=== PATIENT | female | born 1990 | race African-American/Black ===

== ENCOUNTER 2018-02-14 23:54 | Emergency (ER) | payer OTHER ==
[~2018-02-14] VITALS: Ht 172.7 cm; Wt 102.1 kg
[2018-02-15] MEDS ORDERED: NKM (00:03)
--- NOTE | 2018-02-15 00:10 | Emergency Room Report ---
History of Present Illness General Chief Complaint: Lower Extremity Injury Source: Patient Present Illness HPI Is a 27-year-old female with no past medical history. She presents with chief complaint of right ankle pain. Onset for last 2-3 days. No trauma. 2 months ago she actually fell and brace foot. It hurt then. They got better. Now complaining of pain over the lateral ankle area. With swelling. Worse to the point where she can't bear weight because of the pain. No fever chills but no calf tenderness. Denies any other complaint. Pain is 9 out of 10. Better with rest. Allergies: Coded Allergies: No Known Allergies (Unverified , 02/15/18) Patient History Past Medical History: see triage record, old chart reviewed Past Surgical History: none Pertinent Family History: none Last Menstrual Period: 3 weeks ago Now: No Immunizations: other Reviewed Nursing Documentation: PMH: Agreed; PSxH: Agreed Nursing Documentation-PMH Past Medical History: No Stated History Review of Systems Eye: Denies: eye pain, blurred vision ENT: Denies: ear pain, nose congestion, throat swelling Respiratory: Denies: cough, shortness of breath Cardiovascular: Denies: chest pain, palpitations Gastrointestinal: Denies: abdominal pain, diarrhea, nausea, vomiting Musculoskeletal: Reports: joint pain; Denies: back pain Skin: Denies: rash Neurological: Denies: headache, numbness Endocrine: Denies: increased thirst, increased urine Hematologic/Lymphatic: Denies: easy bruising All Other Systems: negative except mentioned in HPI Physical Exam Vital Signs Date Time Temp Pulse Resp B/P (MAP) Pulse Ox O2 Delivery O2 Flow Rate FiO2 02/14/18 23:55 98.5 99 16 140/94 95 Room Air 98.4 vitals normal Sp02 EP Interpretation: reviewed, normal General Appearance: well appearing, no apparent distress, alert Head: normocephalic, atraumatic Eyes: bilateral eye PERRL, bilateral eye EOMI ENT: hearing grossly normal, normal pharynx Neck: full range of motion, supple, no meningismus Respiratory: chest non-tender, lungs clear, normal breath sounds Cardiovascular #1: regular rate, rhythm, no murmur Gastrointestinal: normal bowel sounds, non tender, no mass, no organomegaly, no bruit, non-distended Musculoskeletal: back normal, normal range of motion, tender - Tenderness over the right lateral malleolus. No pain at the base of the fifth metatarsal bone. Mild edema. No redness or warmth. Neurologic: alert, oriented x3 Psychiatric: mood/affect normal Skin: warm/dry Medical Decision Making Diagnostic Impression: Primary Impression: Right ankle sprain Qualified Codes: S93.401A - Sprain of unspecified ligament of right ankle, initial encounter ER Course Patient with ankle pain. Most likely a sprain. No evidence of septic joint or gout. No calf tenderness or edema to indicate DVT. No trauma. We'll discharge home. Other X-Ray Diagnostic Results Other X-Ray Diagnostic Results : X-Ray ordered: rright ankle x-rays # of Views/Limited Vs Complete: 3 View Indication: Pain EP Interpretation: Yes Interpretation: no dislocation, no soft tissue swelling, no fractures Impression: No acute disease Electronically Signed by: Vasu Billings MD Last Vital Signs Date Time Temp Pulse Resp B/P (MAP) Pulse Ox O2 Delivery O2 Flow Rate FiO2 02/14/18 23:55 98.5 99 16 140/94 95 Room Air 98.4 Status: improved Disposition: HOME, SELF-CARE Condition: Stable Scripts Ibuprofen* (MOTRIN*) 600 Mg Tablet 600 MG ORAL THREE TIMES A DAY, #30 TAB 0 Refills Prov: VASU BILLINGS M.D. 02/15/18 Patient Instructions: Ankle Sprain Additional Instructions: Follow-up with your doctor in 7 days. If continue with pain, may need MRI. Return if symptom worsen. VASU BILLINGS M.D. Feb 15, 2018 00:10
[2018-02-15] MEDS ORDERED: Norco 5mg/325mg tab ORAL ONE (00:15)
[2018-02-15] MEDS ORDERED: IBUPROFEN600 MG ORAL (00:22)
[2018-02-15] MEDS ORDERED: Norco 5mg/325mg tab ONE (00:24)
--- NOTE | 2018-02-15 01:13 | Diagnostic Imaging Report ---
EXAM: XR Right Ankle Complete, 3 Views CLINICAL HISTORY: PAIN TECHNIQUE: Frontal, lateral and oblique views of the right ankle. COMPARISON: No relevant prior studies available. FINDINGS: Bones/joints: Unremarkable. No acute fracture. No dislocation. Soft tissues: Unremarkable. IMPRESSION: No definite plain film evidence for acute fracture or dislocation. If there is continued clinical concern for fracture, consider CT or MRI for further evaluation.
[2018-02-15 01:25] VITALS: BP 155/84
== END 2018-02-15 01:25 | disposition home or self-care (01) ==
LOC: EMR 23:59
DX: S93.401A Sprain of unspecified ligament of right ankle, initial encounter (principal); X58.XXXA Exposure to other specified factors, initial encounter; Y92.9 Unspecified place or not applicable
CPT/HCPCS: 29515; 99283

== ENCOUNTER 2019-02-14 22:23 | Emergency (ER) | payer MEDICAID, OTHER ==
[~2019-02-14] VITALS: Ht 172.7 cm; Wt 113.4 kg
[~2019-02-14 22:23] MED LIST: IBUPROFEN600 MG ORAL; NKM
[2019-02-14 22:45] VITALS: BP 156/111
--- NOTE | 2019-02-14 22:45 | NUR ---
ED Nurse Note: Walk-in patient reports pain in the left ankle. Patient reports twisting ankle over a year ago and managing pain from the injury. Patient reports recent increase and limited mobility due to pain within the last week.
--- NOTE | 2019-02-14 23:10 | NUR ---
ED Nurse Note: Radiology at bedside.
[2019-02-14] MEDS ORDERED: HYDROcodone/Acetamin 5/325 tab ORAL ONE (23:30)
[2019-02-14] MEDS ORDERED: IBUPROFEN600 MG ORAL (23:42)
[2019-02-14] MEDS ORDERED: HYDROCODON-ACE1 EA15 ORAL (23:42)
[2019-02-14] MEDS ORDERED: NORVASC10 MG ORAL (23:42)
--- NOTE | 2019-02-14 23:42 | Emergency Room Report ---
History of Present Illness General Chief Complaint: Pain Source: Patient, Medical Record Present Illness HPI Is a 28-year-old female with no significant past medical history. She presents with chief complaint left ankle pain. Onset for the last few days. Worse with walking. She has some swelling to the medial aspect of it. No trauma. Pain is 9 out of 10. Worse with walking and weightbearing. Similar symptom in the past with her right ankle. Allergies: Coded Allergies: No Known Allergies (Unverified , 02/15/18) Patient History Past Medical History: see triage record, old chart reviewed Past Surgical History: none Pertinent Family History: none Social History: Denies: smoking Last Menstrual Period: 01/2019 Now: No Immunizations: other Reviewed Nursing Documentation: PMH: Agreed; PSxH: Agreed Nursing Documentation-PMH Past Medical History: No Stated History Review of Systems Eye: Denies: eye pain, blurred vision ENT: Denies: ear pain, nose congestion, throat swelling Respiratory: Denies: cough, shortness of breath Cardiovascular: Denies: chest pain, palpitations Gastrointestinal: Denies: abdominal pain, diarrhea, nausea, vomiting Musculoskeletal: Reports: joint pain; Denies: back pain Skin: Denies: rash Neurological: Denies: headache, numbness Endocrine: Denies: increased thirst, increased urine Hematologic/Lymphatic: Denies: easy bruising All Other Systems: negative except mentioned in HPI Physical Exam Vital Signs Date Time Temp Pulse Resp B/P (MAP) Pulse Ox O2 Delivery O2 Flow Rate FiO2 02/14/19 22:45 99.3 78 18 156/111 95 Room Air Vitals with high blood pressure Sp02 EP Interpretation: reviewed, normal General Appearance: well appearing, no apparent distress, alert Head: normocephalic, atraumatic Eyes: bilateral eye PERRL, bilateral eye EOMI ENT: hearing grossly normal, normal pharynx Neck: full range of motion, supple, no meningismus Respiratory: chest non-tender, lungs clear, normal breath sounds Cardiovascular #1: regular rate, rhythm, no murmur Gastrointestinal: normal bowel sounds, non tender, no mass, no organomegaly, no bruit, non-distended Musculoskeletal: back normal, gait/station normal, normal range of motion Psychiatric: mood/affect normal Procedures Splinting Splinting : Consent: Verbal Location: left ankle Pre-Made Type: aircast Pre-Proc Neuro Vasc Exam: normal Post-Proc Neuro Vasc Exam: normal Patient Tolerated: Well Complications: None Medical Decision Making Diagnostic Impression: Primary Impression: Left ankle sprain Qualified Codes: S93.422A - Sprain of deltoid ligament of left ankle, initial encounter Additional Impression: Hypertension Qualified Codes: I10 - Essential (primary) hypertension ER Course Patient with ankle sprain. No fracture dislocation. She also has a history of high blood pressure but not on medication. We will put her on medication here. Other X-Ray Diagnostic Results Other X-Ray Diagnostic Results : X-Ray ordered: Ankle x-rays, left # of Views/Limited Vs Complete: 3 View Indication: Pain EP Interpretation: Yes Interpretation: no dislocation, no soft tissue swelling, no fractures Impression: No acute disease Electronically Signed by: Vasu Billings MD Last Vital Signs Date Time Temp Pulse Resp B/P (MAP) Pulse Ox O2 Delivery O2 Flow Rate FiO2 02/14/19 22:45 99.3 100 18 156/111 (126) 95 Room Air Status: improved Disposition: HOME, SELF-CARE Condition: Stable Scripts Amlodipine Besylate (Norvasc) 10 Mg Tablet 10 MG ORAL DAILY, #90 TAB Prov: Vasu Billings MD 02/14/19 Ibuprofen* (MOTRIN*) 600 Mg Tablet 600 MG ORAL THREE TIMES A DAY, #30 TAB 0 Refills Prov: Vasu Billings MD 02/14/19 Hydrocodone/Acetaminophen 5-325* (HYDROCODONE/ACETAMINOPHEN 5-325*) 1 Each Tablet 1 TAB ORAL Q6H PRN for For Pain, #20 TAB 0 Refills Prov: Vasu Billings MD 02/14/19 Additional Instructions: Follow-up with your doctor in 7 days. Return if symptoms worsen. Vasu Billings MD Feb 14, 2019 23:42
--- NOTE | 2019-02-14 23:57 | Diagnostic Imaging Report ---
EXAM: XR Left Ankle Complete, 3 or More Views CLINICAL HISTORY: PAIN TECHNIQUE: Frontal, lateral and oblique views of the left ankle. COMPARISON: No relevant prior studies available. FINDINGS: Bones/joints: No definite acute or healing fracture or malalignment. Large tibiotalar joint effusion. Soft tissues: Diffuse soft tissue edema about the ankle, most prominent laterally. No radiopaque foreign body. IMPRESSION: Large tibiotalar joint effusion without acute or healing fracture or malalignment.
--- NOTE | 2019-02-15 00:04 | NUR ---
ED Nurse Note: Patient cleared for discharge, no s/s of acute distress. Patient medicated prior to departure. PAtient will ride an Uber home and has also been provided with crutches and a brace for ambulation. Patient departed with all belongings.
[2019-02-15 00:05] VITALS: BP 156/111
== END 2019-02-15 00:06 | disposition home or self-care (01) ==
LOC: EMR 23:55
DX: S93.422A Sprain of deltoid ligament of left ankle, initial encounter (principal); I10 Essential (primary) hypertension; X58.XXXA Exposure to other specified factors, initial encounter; Y92.9 Unspecified place or not applicable
CPT/HCPCS: 29515; 99283

== ENCOUNTER 2019-09-06 11:22 | Emergency (ER) | payer MEDICAID ==
[~2019-09-06] VITALS: Ht 172.7 cm; Wt 104.3 kg
[~2019-09-06 11:22] MED LIST changes: +HYDROCODON-ACE1 EA15 ORAL; +NORVASC10 MG ORAL
--- NOTE | 2019-09-06 11:36 | NUR ---
ED Nurse Note: Pt walked into ED w/ c/o pain in L wrist. Pt work involves typing. L wrist ROM 1/5, pain is shooting. Pt L hand is slightly swollen, no redness. Pt is alert and orientedx4, ambulatory. Pt denies numbness or tingling.
--- NOTE | 2019-09-06 11:49 | NUR ---
Note baoone in EDM - 09/06/19 at 1151 by [email or web address] ED Nurse Note: Pt brought into ED by ambulance from SNF. Pt G tube was displaced per ambulance and SNF replaced g tube w/ f/c temporarily. Pt came w/ 18F vidal in g tube site. Pt is alert and orientedx3, ambulatory with assist. Pt has cognitive impairment, but is cooperative. has seen pt.
[2019-09-06] MEDS ORDERED: Ketorolac 60mg Inj IM ONE (12:15)
[2019-09-06 12:20] VITALS: BP 146/97
--- NOTE | 2019-09-06 12:21 | Emergency Room Report ---
History of Present Illness General Chief Complaint: Pain Source: Patient Present Illness HPI Is a 29-year-old female brought in by self after increased left-sided wrist pain for the past 3 days. She reported having increased difficulty with movements. She denies any prior history of arthritis. She reports having some swelling and discomfort to the wrist. Reports drinking alcohol approximately 3 times a week. She denies any recent trauma. Denies any other locations of injury or pain. Previously been healthy. She does report having some upper back pain. She had noticed her wrist more swollen Allergies: Coded Allergies: No Known Allergies (Unverified , 02/15/18) Patient History Past Medical History: see triage record Last Menstrual Period: a week ago Reviewed Nursing Documentation: PMH: Agreed; PSxH: Agreed Nursing Documentation-PMH Past Medical History: No Stated History Review of Systems All Other Systems: negative except mentioned in HPI Physical Exam Vital Signs Date Time Temp Pulse Resp B/P (MAP) Pulse Ox O2 Delivery O2 Flow Rate FiO2 09/06/19 11:24 98.1 100 22 156/99 (118) 95 Room Air Sp02 EP Interpretation: reviewed, normal General Appearance: normal inspection, well appearing, no apparent distress, alert, GCS 15 Head: atraumatic ENT: normal ENT inspection, hearing grossly normal, normal voice Neck: normal inspection, full range of motion, supple, no bony tend Respiratory: normal inspection, lungs clear, normal breath sounds, no respiratory distress, no retraction, no wheezing Cardiovascular #1: regular rate, rhythm, no edema Gastrointestinal: normal inspection, normal bowel sounds, non tender, soft, no guarding, no hernia Genitourinary: no CVA tenderness Musculoskeletal: normal inspection, back normal, normal range of motion Neurologic: alert, responsive, speech normal, normal inspection Psychiatric: normal inspection, judgement/insight normal, mood/affect normal Medical Decision Making Diagnostic Impression: Primary Impression: Arthritis of wrist, left ER Course Patient presented for increased left-sided wrist pain. Differential diagnosis includes is not limited to reactive arthritis, radial nerve palsy, among others. Patient appears to have some arthritis to the left joint. X-ray imaging of the left wrist 3 views interpreted by me showed normal bony alignment without evident fracture. Patient was given medications for pain. She was advised to follow-up with her primary care physician for further work- up. She was advised to return if worse. Last Vital Signs Date Time Temp Pulse Resp B/P (MAP) Pulse Ox O2 Delivery O2 Flow Rate FiO2 09/06/19 11:24 98.1 100 22 156/99 (118) 95 Room Air Status: improved Disposition: HOME, SELF-CARE Condition: Stable Scripts Hydrocodone Bit/Acetaminophen 5-325* (NORCO 5-325*) 1 Each Tablet 1 TAB ORAL Q6H PRN for For Pain, #10 TAB 0 Refills Prov: Dejon Godinez MD 09/06/19 Ibuprofen* (MOTRIN*) 600 Mg Tablet 600 MG ORAL Q6HR for For Pain, #20 TAB 0 Refills Prov: Dejon Godinez MD 09/06/19 Referrals: [facility],REFERRING (PCP) Dejon Godinez MD Sep 06, 2019 12:21
[2019-09-06] MEDS ORDERED: IBUPROFEN600 MG ORAL (13:24)
[2019-09-06] MEDS ORDERED: NORCO 5-325 TA1 EACH ORAL (13:24)
[2019-09-06 14:04] VITALS: BP 125/99
--- NOTE | 2019-09-06 14:04 | NUR ---
ER DISCHARGE NOTE: Patient is cleared to be discharged per ERMD, pt is aox4, on room air, with stable vital signs. pt was given dc and prescription instructions, pt was able to verbalize understanding, pt id band removed. pt is able to ambulate with steady gait. pt took all belongings. L swrist splint applied.
--- NOTE | 2019-09-07 11:14 | Diagnostic Imaging Report ---
Indication: Left wrist pain Findings: 3 views of the left wrist were obtained. No acute fractures, malalignment, erosions or periostitis are identified. Soft tissues are unremarkable. Impression: No acute findings.
== END 2019-09-06 14:05 | disposition home or self-care (01) ==
LOC: EMR 11:40
DX: M19.032 Primary osteoarthritis, left wrist (principal)
CPT/HCPCS: 73110; 81025; 96372; Z7502; 99283

== ENCOUNTER 2020-07-23 12:51 | Emergency (ER) | payer MEDICAID ==
[~2020-07-23] VITALS: Ht 175.3 cm; Wt 127.0 kg
[~2020-07-23 12:51] MED LIST changes: +NORCO 5-325 TA1 EACH ORAL
--- NOTE | 2020-07-23 13:05 | NUR ---
ED Nurse Note: pt presents to ED c/o L foot and ankle swelling x 10 days. pt states that she twisted her ankle about 1.5 weeks ago and since then the pain and swelling have not improved. pt reports pain is worse when she walks/bear weights and reports decreased ROM of L ankle. skin over area is clean dry and intact, pedal pulses palpable
--- NOTE | 2020-07-23 13:05 | NUR ---
ED Nurse Note: pt aaox4. ambulatory. pt walked in from home c/o L foot and ankle swelling x 1 week, pt reports she twisted her ankle 1.5 weeks ago, the pain and swelling has gotten worse. no resp distress noted at this time
[2020-07-23] MEDS ORDERED: HYDROcodone/Acetamin 5/325 tab ORAL ONE (13:30)
--- NOTE | 2020-07-23 14:01 | Diagnostic Imaging Report ---
ADDENDUM - Added by Jf Mensah M.D. on 07/23/2020 2:04 PM (-08:00) Addendum: Comparison made to study of 02/14/19 The previously noted tibiotalar effusion is no longer evident. EXAM: XR Left Ankle Complete, 3 or More Views CLINICAL HISTORY: PAIN TECHNIQUE: Frontal, lateral and oblique views of the left ankle. COMPARISON: No relevant prior studies available. FINDINGS: Bones/joints: Unremarkable. No acute fracture. No dislocation. Soft tissues: Unremarkable. IMPRESSION: Unremarkable left ankle x-rays.
--- NOTE | 2020-07-23 14:03 | Diagnostic Imaging Report ---
EXAM: XR Left Foot Complete, 3 or More Views CLINICAL HISTORY: PAIN TECHNIQUE: Frontal, lateral and oblique views of the left foot. COMPARISON: No relevant prior studies available. FINDINGS: Bones/joints: Hallux valgus deformity. No acute fracture. No dislocation. Soft tissues: Unremarkable. No radiopaque foreign body. IMPRESSION: Hallux valgus deformity.
--- NOTE | 2020-07-23 14:08 | Emergency Room Report ---
History of Present Illness General Chief Complaint: Lower Extremity Injury Source: Patient (Rhea Talbert) Present Illness HPI 30-year-old female presents to the emergency department complaining of 9 out of 10 severity left ankle pain x1.5 weeks. Status post mechanical twisting of her ankle injury. Patient reports acute onset of pain and swelling. She reports pain and inability to bear weight. She states that over time she has been able to put some weight on her foot and ankle now. She reports she continues to have pain and swelling. She denies open wounds or bleeding. She denies erythema or warmth. She denies fevers or chills. She denies additional trauma or fall. She denies calf pain or swelling. No other aggravating or relieving factors. She reports she took Motrin once a few days ago with no relief of her symptoms. She denies paresthesias or weakness. She denies midline neck or back pain. She denies hitting her head or having a loss of consciousness. (Rhea Talbert) Allergies: Coded Allergies: No Known Allergies (Unverified , 02/15/18) COVID-19 Screening Contact w/high risk pt: No Experienced COVID-19 symptoms?: No COVID-19 Testing performed UPWARD BOUND DIRECTOR: No (hRea Talbert) Patient History Past Medical History: see triage record Past Surgical History: none Pertinent Family History: none Last Menstrual Period: 06/11/2020 Now: No Reviewed Nursing Documentation: PMH: Agreed; PSxH: Agreed (Rhea Talbert) Nursing Documentation-PMH Past Medical History: No Stated History (Rhea Talbert) Review of Systems All Other Systems: negative except mentioned in HPI (Rhea Talbert) Physical Exam Vital Signs Date Time Temp Pulse Resp B/P (MAP) Pulse Ox O2 Delivery O2 Flow Rate FiO2 07/23/20 12:59 97.9 97 18 137/86 (103) 97 Room Air Sp02 EP Interpretation: reviewed, normal General Appearance: no apparent distress, alert, GCS 15, non-toxic Head: normocephalic, atraumatic Eyes: bilateral eye normal inspection, bilateral eye PERRL ENT: hearing grossly normal, normal voice Neck: full range of motion Respiratory: lungs clear, normal breath sounds, speaking full sentences Cardiovascular #1: regular rate, rhythm, no edema, normal capillary refill Cardiovascular #2: 2+ dorsalis pedis (R), 2+ dorsalis pedis (L) Musculoskeletal: normal range of motion, no calf tenderness, tender - Tenderness to the dorsum and the lateral aspect of the left foot and lateral aspect of the left ankle. There is some slight bruising noted. There is moderate soft tissue swelling. Pain with weightbearing. No instability of the ankle joint. Patient is NVI. No visible deformities. , other - compensatory gait favoring the left foot. able to ambulate without assistanct Neurologic: alert, motor strength/tone normal, oriented x3, sensory intact, responsive, speech normal Psychiatric: judgement/insight normal Skin: normal color, other - Soft tissue swelling to the dorsum and lateral aspect of the left foot as well as the lateral aspect of the left ankle. Slight bruising which appears to be improving noted on the dorsum of the foot. No erythema or warmth. No open wounds or bleeding. No lacerations or abrasions. (Rhea Talbert) Medical Decision Making PA Attestation Dr. Honeycutt is my supervising Physician whom patient management has been discussed with. (Rhea Talbert) Diagnostic Impression: Primary Impression: Left ankle sprain Qualified Codes: S93.492A - Sprain of other ligament of left ankle, initial encounter Additional Impression: Sprain of left foot Qualified Codes: S93.602A - Unspecified sprain of left foot, initial encounter ER Course 30-year-old female presents to the emergency department complaining of 9 out of 10 severity left ankle pain x1.5 weeks. Status post mechanical twisting of her ankle injury. Patient reports acute onset of pain and swelling. She reports pain and inability to bear weight. She states that over time she has been able to put some weight on her foot and ankle now. She reports she continues to have pain and swelling. She denies open wounds or bleeding. She denies erythema or warmth. She denies fevers or chills. She denies additional trauma or fall. She denies calf pain or swelling. No other aggravating or relieving factors. She reports she took Motrin once a few days ago with no relief of her symptoms. She denies paresthesias or weakness. She denies midline neck or back pain. She denies hitting her head or having a loss of consciousness. Ddx considered but are not limited to Fracture, dislocation, contusion, Sprain/Strain/Spasm, Cellulitis, just to name a few. Vital signs: are WNL, pt. is afebrile H&PE are most consistent with musculoskeletal injury will perform imaging to r/o fractures/dislocations. ORDERS: - X-ray Left foot and Ankle 3 views each - negative for fx, Dislocation, or significant soft tissue injury, per preliminary read in ED, and signed by PAULINA Talbert, my supervising physician has reviewed, and agrees with my interpretation. ED INTERVENTIONS: - Clinchco 5mg Po -Mohinder wrap applied to the left foot and ankle by ED RN. Pt. remains neurovascularly intact. - Pt. declines crutches DISCHARGE: At this time pt. is stable for d/c to home. Will provide printed patient care instructions, and any necessary prescriptions. Care plan and follow up instructions have been discussed with the patient prior to discharge. (Rhea Talbert) Other X-Ray Diagnostic Results Other X-Ray Diagnostic Results #1: X-Ray ordered: Left FOOT # of Views/Limited Vs Complete: 3 View Indication: Pain EP Interpretation: Yes PA Xray: Interpretation reviewed, by supervising MD, and agrees with findings. Interpretation: no dislocation, no soft tissue swelling, no fractures Impression: No acute disease Electronically Signed by: Rhea Talbert PA-C Other X-Ray Diagnostic Results #2: X-Ray ordered: Left Ankle # of Views/Limited Vs Complete: 3 View Indication: Pain EP Interpretation: Yes PA Xray: Interpretation reviewed, by supervising MD, and agrees with findings. Interpretation: no dislocation, no soft tissue swelling, no fractures Impression: No acute disease Electronically Signed by: Rhea Talbert PA-C (Rhea Talbert) Other X-Ray Diagnostic Results #1: X-Ray ordered: Foot Electronically Signed by: P A documentation of Xray reviewed by me and is accurate, Ubaldo Honeycutt MD Other X-Ray Diagnostic Results #2: X-Ray ordered: Ankle Electronically Signed by: P A documentation of Xray reviewed by me and is accurate, Ubaldo Honeycutt MD (Ubaldo Honeycutt MD) Last Vital Signs Date Time Temp Pulse Resp B/P (MAP) Pulse Ox O2 Delivery O2 Flow Rate FiO2 07/23/20 12:59 97.9 97 18 137/86 (103) 97 Room Air Status: improved (Rhea Talbert) Disposition: HOME, SELF-CARE Condition: Stable Scripts Hydrocodone Bit/Acetaminophen (HYDROCODON-ACETAMINOPHEN 5-300) 1 Each Tablet 1 EACH PO Q8HR for 3 Days, #9 TAB Prov: Rhea Talbert 07/23/20 Ibuprofen* (MOTRIN*) 600 Mg Tablet 600 MG ORAL THREE TIMES A DAY, #20 TAB Prov: Rhea Talbert 07/23/20 Referrals: [facility],REFERRING (PCP) Shday Molina Comp. [facility] Patient Instructions: Ankle Sprain, Foot Sprain Additional Instructions: Take medications as directed. Follow up with an HAND SCRAPER in 3-5 days, even if your symptoms have resolved. If symptoms persist MRI may be required at the discretion of your PCP or Ortho Specialist. --Please review list of primary care clinics, if you do not already have a primary care provider who can give you an Orthopedic Referral. Return sooner to ED if new symptoms occur, or current symptoms become worse. - Please note that this Emergency Department Report was dictated using [employer] extraction tender technology software, occasionally this can lead to erroneous entry secondary to interpretation by the dictation equipment. Rhea Talbert Jul 23, 2020 14:08 Ubaldo Honeycutt MD Jul 23, 2020 18:37
[2020-07-23] MEDS ORDERED: IBUPROFEN600 M1 ORAL (14:42)
[2020-07-23] MEDS ORDERED: HYDROCODON-ACE1 EA18 PO (14:42)
--- NOTE | 2020-07-23 14:45 | NUR ---
ED Nurse Note: anupam wrap applied on the afected site and crutches provided per PA orders.
[2020-07-23 15:04] VITALS: BP 145/78
--- NOTE | 2020-07-23 15:04 | NUR ---
ER DISCHARGE NOTE: Patient is cleared to be discharged per ERMD, pt is aox4, on room air, with stable vital signs. pt was given dc and prescription instructions, pt was able to verbalize understanding, pt id band removed. pt is able to ambulate with steady gait. pt took all belongings.
== END 2020-07-23 15:04 | disposition home or self-care (01) ==
LOC: EMR 13:26
DX: S93.492A Sprain of other ligament of left ankle, initial encounter (principal); S93.602A Unspecified sprain of left foot, initial encounter; X50.1XXA Overexertion from prolonged static or awkward postures, initial encounter; Y93.9 Activity, unspecified; Y92.9 Unspecified place or not applicable
CPT/HCPCS: 73610; 73630; Z7502; 99284